=== PATIENT | male | born 1975 | race Caucasian/White ===

== ENCOUNTER 2017-05-26 08:21 | Emergency (ER) | payer OTHER ==
[2017-05-26] MEDS ORDERED: Ketorolac 60 MG/2 ML SDV IM ONE (08:39)
--- NOTE | 2017-05-26 08:45 | EDM.PDOC ---
ED HPI GENERAL MEDICAL PROBLEM - General Chief Complaint: Back Pain or Injury Stated Complaint: BACK PAIN Time Seen by Provider: 05/26/17 08:26 - History of Present Illness INITIAL COMMENTS - FREE TEXT/NARRATIVE: HISTORY AND PHYSICAL: History of present illness: The patient is a healthy 42-year-old male who presents with onset of lower back pain that started last evening when he was bending over and his right foot slipped out. He did not fall to the ground completely he did not pass out or blacked out but he felt sudden pain in his lumbar back. The pain does not radiate to his legs and he has been able to urinate without difficulty. He has no bowel or bladder disturbances and no neurosensory changes or weakness in his legs. He says he has had back pain in the past but is always work through it and today when he woke up he was very stiff and more sore than it was last night and he tried to go to work and was even having difficulty getting in and out of his car. He has no flank pain and no abdominal pain. He has not taken any medications for the pain prior to coming here nor has he applied heat or ice. He tells me that it's worse with position changing and sitting Review of systems: As per history of present illness and below otherwise all systems reviewed and negative. Past medical history: As per history of present illness and as reviewed below otherwise noncontributory. Surgical history: As per history of present illness and as reviewed below otherwise noncontributory. Social history: No reported history of drug or alcohol abuse. Family history: As per history of present illness and as reviewed below otherwise noncontributory. Physical exam: Gen.: Well-developed well-nourished mildly overweight male who is nontoxic and prefers to newsstand vendor the room as it is uncomfortable for him to sit down. Blood pressure as noted by me and as the patient is in significant pain he has been advised that he should follow-up with blood pressure pain is improved. HEENT: Atraumatic, normocephalic, negative for conjunctival pallor or scleral icterus, mucous membranes moist, throat clear, neck supple, nontender, trachea midline. Lungs: Clear to auscultation, breath sounds equal bilaterally, chest nontender. Heart: S1S2, regular rate and rhythm no overt murmurs Abdomen: Soft, nondistended, nontender. NABS Negative for costovertebral tenderness. Pelvis: Stable nontender. Genitourinary: Deferred. Rectal: Deferred. Extremities: Atraumatic, negative for cords or calf pain. Neurovascular unremarkable. Neuro: Awake, alert, oriented. Cranial nerves II through XII unremarkable. Cerebellum unremarkable. Motor and sensory unremarkable throughout. Exam nonfocal. Back: There are no midline step-offs in his defects of the thoracic or lumbar spine no posterior pelvis or rib tenderness and I cannot completely reproduce the pain on palpation but the patient indicates the mid and lower lumbar spine area as the area of his discomfort. When I palpate the buttocks there is no tenderness Diagnostics: We discussed x-rays ; due to the mechanism of injury he and I both defer this option Therapeutics: Toradol Patient was offered muscle relaxers stronger pain medication but chooses to drive himself home I have explained to the patient that this is likely muscular in origin from what he is describing and the muscles are probably the deep muscles of the back which will take time to heal. I will give him anti-inflammatories and muscle relaxers and some pain medication to try at home but strongly recommend follow- up in the clinic. When nursing will attempt to get him an appointment for follow -up as well. I've advised him on reasons to return Impression: Lumbar back musculoskeletal pain strain Definitive disposition and diagnosis as appropriate pending reevaluation and review of above Lower Back Pain Score (Numeric/FACES): 9 - Related Data Allergies Allergy/AdvReac Type Severity Reaction Status Date / Time No Known Allergies Allergy Verified 05/26/17 08:38 Home Meds: Home Meds . [No Known Home Meds] 05/26/17 [History] Past Medical History - Past Health History Medical/Surgical History: Denies Medical/Surgical History Social & Family History - Tobacco Use Smoking Status *Q: Current Every Day Smoker Years of Tobacco use: 13 Packs/Tins Daily: 0.1 - Caffeine Use Caffeine Use: Reports: Coffee - Recreational Drug Use Recreational Drug Use: No ED ROS GENERAL - Review of Systems Review Of Systems: ROS reveals no pertinent complaints other than HPI. ED EXAM, GENERAL - Physical Exam Exam: See Below (See dictation) Course - Vital Signs Last Recorded V/S: Last Vital Signs Temp 37.1 C 05/26/17 08:34 Pulse 118 H 11/06/17 08:34 Resp 18 05/26/17 08:34 BP 240/122 H 05/26/17 08:34 Pulse Ox 95 05/26/17 08:34 - Orders/Labs/Meds Orders: Active Orders 24 hr Category Date Time Status Ketorolac [Toradol] Med 05/26/17 08:39 Once 60 mg IM ONETIME ONE Medication Orders Ketorolac Tromethamine (Toradol) 60 mg IM ONETIME ONE Stop: 05/26/17 08:40 Meds: Medications Generic Name Dose Route Start Last Admin Trade Name Maday PRN Reason Stop Dose Admin Ketorolac Tromethamine 60 mg 05/26/17 08:39 Toradol IM 05/26/17 08:40 ONETIME ONE Departure - Departure Time of Disposition: 08:44 Disposition: Home, Self-Care 01 Condition: Fair Clinical Impression: Musculoskeletal back pain Acute lumbar back pain Qualifiers: Back pain laterality: bilateral Sciatica presence: without sciatica Qualified Code(s): M54.5 - Low back pain - Discharge Information Referrals: PCP,None [Primary Care Provider] - Additional Instructions: The following information is given to patients seen in the emergency department who are being discharged to home. This information is to outline your options for follow-up care. We provide all patients seen in our emergency department with a follow-up referral. The need for follow-up, as well as the timing and circumstances, are variable depending upon the specifics of your emergency department visit. If you don't have a primary care physician on staff, we will provide you with a referral. We always advise you to contact your personal physician following an emergency department visit to inform them of the circumstance of the visit and for follow-up with them and/or the need for any referrals to a consulting specialist. The emergency department will also refer you to a specialist when appropriate. This referral assures that you have the opportunity for followup care with a specialist. All of these measure are taken in an effort to provide you with optimal care, which includes your followup. Under all circumstances we always encourage you to contact your private physician who remains a resource for coordinating your care. When calling for followup care, please make the office aware that this follow-up is from your recent emergency room visit. If for any reason you are refused follow-up, please contact the [facility] emergency department at and ask to speak to the emergency department charge nurse. [facility] Primary care- Internal Medicine and Family [facility] [address] [place] [id number] Please expect back to slowly improve with the discomfort. Please do all activities and motions even simple ones very slowly. Use nonsteroidal medications as well as muscle relaxers and use stronger pain medications for sleep or as needed. Please follow-up in our clinic in the next few days and return to the ER as needed and as discussed. - My Orders Last 24 Hours: My Active Orders 05/26/17 08:39 Ketorolac [Toradol] 60 mg IM ONETIME ONE - Assessment/Plan Last 24 Hours: My Active Orders 05/26/17 08:39 Ketorolac [Toradol] 60 mg IM ONETIME ONE
== END 2017-05-26 09:22 | disposition home or self-care (01) ==
LOC: MW.ED 08:21
DX: S39.012A Strain of muscle, fascia and tendon of lower back, initial encounter (principal); F17.210 Nicotine dependence, cigarettes, uncomplicated; X50.1XXA Overexertion from prolonged static or awkward postures, initial encounter
CPT/HCPCS: 96372; 99283; J1885; 99284

== ENCOUNTER 2021-08-17 14:15 | Emergency (ER) | payer OTHER ==
[2021-08-17] MEDS ORDERED: Sodium Chloride 0.9% 2.5 ML Syringe FLUSH PRN (16:06)
[2021-08-17] MEDS ORDERED: Sodium Chloride 0.9% 10 ML Syringe FLUSH PRN (16:06)
[2021-08-17 17:16] LABS: BLOOD UREA NITROGEN,BUN 33 mg/dL (7.0-18.0); CARBON DIOXIDE,CO2 22.8 mmol/L (21.0-32.0); CHLORIDE,CL 94 mmol/L (98-107); GLUCOSE RANDOM 97 mg/dL (74-106); POTASSIUM,K 3.8 mmol/L (3.5-5.1); SODIUM,NA 131 mmol/L (136-148)
[2021-08-17] MEDS ORDERED: Sodium Chloride 0.9% 1,000 ML IV ONE ×2 (17:29→19:19)
[2021-08-17] MEDS ORDERED: LORazepam 2 MG/ML SDV IVPUSH ONE (20:55)
== END 2021-08-17 22:17 | disposition home or self-care (01) ==
LOC: MW.ED 14:15
DX: N17.9 Acute kidney failure, unspecified (principal)
CPT/HCPCS: 36415; 71045; 80053; 81001; 82550; 83735; 84439; 84443; 84484; 85025; 85379; 87635; 87804; 93005; 96374; 99285; J2060; J7030; U0002

== ENCOUNTER 2022-01-29 15:46 | Emergency (ER) | payer OTHER ==
[2022-01-29] MEDS ORDERED: Sodium Chloride 0.9% 1,000 ML IV ONE ×2 (16:43→18:27)
[2022-01-29] MEDS ORDERED: Ondansetron 4 MG/2 ML SDV IVPUSH ONE (16:43)
[2022-01-29] MEDS ORDERED: Pantoprazole 80 MG in Sodium Chloride 0.9% 10 ML IVPUSH ONE (16:44)
== END 2022-01-29 20:58 ==
LOC: MW.ED 15:46
DX: N17.9 Acute kidney failure, unspecified (principal); E87.1 Hypo-osmolality and hyponatremia; R74.8 Abnormal levels of other serum enzymes
CPT/HCPCS: 36415; 71045; 74176; 80179; 80307; 81001; 82550; 82803; 83735; 84100; 84484; 85379; 87086; 93005; 96361; 96374; 96375; 99285; C9113; J2405; J3490; J7030; 93010

== ENCOUNTER 2022-02-22 16:04 | Emergency (ER) | payer OTHER ==
[2022-02-22] MEDS ORDERED: Sodium Chloride 0.9% 1,000 ML IV ONE ×2 (16:24→18:26)
[2022-02-22] MEDS ORDERED: Ondansetron 4 MG/2 ML SDV IVPUSH ONE (16:24)
== END 2022-02-22 21:30 | disposition home or self-care (01) ==
LOC: MW.ED 16:04
DX: R74.01 Elevation of levels of liver transaminase levels (principal); R74.8 Abnormal levels of other serum enzymes; F17.210 Nicotine dependence, cigarettes, uncomplicated; Z79.899 Other long term (current) drug therapy
CPT/HCPCS: 36415; 76705; 80074; 80307; 85610; 85730; 96361; 96374; 99284; J2405; J7030

== ENCOUNTER 2022-03-13 13:01 | Emergency (ER) | payer OTHER ==
[2022-03-13] MEDS ORDERED: Diphtheria,Pertussis(Acell),Tetanus Vaccine 0.5 ML Syringe IM ONE (13:27)
[2022-03-13] MEDS ORDERED: Lidocaine 1% PF 2 ML SDV INJECT ONE (13:27)
== END 2022-03-13 14:39 | disposition home or self-care (01) ==
LOC: MW.ED 13:01
DX: S61.211A Laceration without foreign body of left index finger without damage to nail, initial encounter (principal); I10 Essential (primary) hypertension; Z23 Encounter for immunization; Z79.899 Other long term (current) drug therapy; W26.8XXA Contact with other sharp object(s), not elsewhere classified, initial encounter
CPT/HCPCS: 12001; 73140-26-F1; 73140-F1; 90471; 90715; 99283; 99283-25

== ENCOUNTER 2023-08-17 14:41 | Emergency (ER) | payer OTHER | END 2023-08-17 16:11 | disposition home or self-care (01) | LOC: MW.ED 14:41 | DX: F10.129 Alcohol abuse with intoxication, unspecified (principal); I10 Essential (primary) hypertension; Z79.899 Other long term (current) drug therapy; Y90.9 Presence of alcohol in blood, level not specified | CPT/HCPCS: 99282; 99285 ==